=== PATIENT | male | born 1960 | race Hispanic/Latino ===

== ENCOUNTER 2020-12-02 13:25 | Outpatient (CLI) | payer OTHER | END 2020-12-02 13:26 | disposition home or self-care (01) | LOC: CSHMRI 13:25 | DX: S39.012D Strain of muscle, fascia and tendon of lower back, subsequent encounter (principal); R20.2 Paresthesia of skin; M47.816 Spondylosis without myelopathy or radiculopathy, lumbar region | CPT/HCPCS: 72148 ==